=== PATIENT | male | born 1950 | race Caucasian/White ===

== ENCOUNTER 2016-10-05 09:37 | Inpatient (IN) | payer OTHER ==
[~2016-10-05] VITALS: Ht 177.8 cm; Wt 94.3 kg
--- NOTE | 2016-10-05 17:23 | EKG ---
[facility] [address] [facility] [place] [address] Signed Normal sinus rhythm Normal ECG No previous ECGs available Confirmed by KEYONNA MANNING MD ([id number]) on 10/05/2016 5:23:00 PM Electronically Signed By: KEYONNA MANNING MD 10/05/16 1723 PATIENT NAME: RICHYXAVIER Electrocardiogram DATE OF : 52 PHYSICIAN: KEYONNA MANNING MD REPORT #: [id number] REPORT IS CONFIDENTIAL AND NOT TO BE RELEASED WITHOUT AUTHORIZATION
[2016-10-08] MEDS ORDERED: NICOTINE PATCH1 EA TD (20:40)
[2016-10-08] MEDS ORDERED: ASPIRIN EC81 MG PO (20:40)
[2016-10-08] MEDS ORDERED: ATORVASTATIN CA80 MG PO (20:40)
[2016-10-08] MEDS ORDERED: NORVASC10 MG PO (20:40)
== END 2016-10-09 13:00 | disposition home or self-care (01) | DRG 65 ==
LOC: ED 09:37 → MS 13:11
PROVIDERS: ADMIT Internal Medicine
DX: I63.9 Cerebral infarction, unspecified (principal); D68.51 Activated protein C resistance; G81.91 Hemiplegia, unspecified affecting right dominant side; I10 Essential (primary) hypertension; E78.5 Hyperlipidemia, unspecified; I65.23 Occlusion and stenosis of bilateral carotid arteries; R47.81 Slurred speech; R26.81 Unsteadiness on feet; F17.200 Nicotine dependence, unspecified, uncomplicated; Z79.82 Long term (current) use of aspirin
CPT/HCPCS: 36415; 70450; 71010; 80048; 80053; 80061; 81001; 81241; 83036; 85025; 85610; 85730; 92507; 92523; 93005; 93010; 93306; 93880; 97112; 97116; 97161; 97165; 97530; 99285; 99406; J7030

== ENCOUNTER 2017-06-17 08:16 | Day surgery (SDC) | payer MEDICARE, MEDICAID, OTHER ==
[~2017-06-17] VITALS: Ht 177.8 cm; Wt 93.4 kg
[~2017-06-17 08:16] MED LIST: ASPIRIN EC81 MG PO; ATORVASTATIN CA80 MG PO; CITALOPRAM HBR20 MG PO; FLUOXETINE HCL10 M1 PO; LEVOTHYROXINE50 MCG PO; LISINOPRIL20 MG PO; METFORMIN HCL500 MG PO; NICOTINE PATCH1 EA TD; NORVASC10 MG PO
[2017-06-17] MEDS ORDERED: METOPROLOL SUCC50 MG (08:42)
--- NOTE | 2017-06-17 09:49 | NUR ---
06/17/17 0949 Kirstin Yepez 0918-PATIENT ARRIVED TO PACU ON 4L NC WEANED TO 2L NC O2 SAT 96% ABDOMEN ROUND AND SOFT. PASSING FLATUS. PATIENT DROWSY AWAKENS TO VERBAL STIMULI RR EVEN.
--- NOTE | 2017-06-17 17:10 | OR ---
[facility] [address] [place], [place] [address] Signed DATE OF OPERATION: 06/17/2017 SURGEON: Bj Moreno MD PREOPERATIVE DIAGNOSIS: Screening. POSTOPERATIVE DIAGNOSES: 1. 10 mm polyp at 85 cm (tattoo). 2. Mid right colon polyps x3, 4 mm and 10 mm. 3. 5 mm polyp at 42 cm. 4. 8 to 10 mm polyp at 25 cm. 5. 4 mm polyp at 12 cm. 6. 3 mm polyp at 4 cm. 7. Internal hemorrhoids. 8. Minimal sigmoid diverticulosis. PROCEDURE PERFORMED: Colonoscopy with hot biopsy, snare polypectomy, and injection tattoo at 85 cm. ESTIMATED BLOOD LOSS: None. INDICATIONS: Jamaal is a 66-year-old gentleman, who was asked to see me for his initial screening colonoscopy. His has been through colonoscopy, so they are familiar with the process. Jamaal tells me he has no lower GI complaints. He is a little forgetful after his stroke. He said there is no family history of colon cancer or polyps. In the office, I gave Jamaal a pamphlet on colonoscopy and we looked at that together along with the risks including, but not limited to gas bloating, crampy abdominal pain, bleeding, perforation, requiring surgery, and missed diagnosis. We also discussed the need for IV conscious sedation. He had expressed understanding and wished to proceed. PROCEDURE NOTE: I did ask Jamaal to take his citalopram 20 mg p.o. with a sip of water in the morning. Fortunately, he did do that for us. Once in the endoscopy suite, we placed him in the left lateral decubitus position. He was given a total of 5 mg of Versed and 150 mcg of fentanyl to cover the case. A digital rectal exam was performed and this was unremarkable. His prostate does show some induration. The adult colonoscope was then, introduced and advanced all around into the cecum under direct visualization of camera Electronically Signed By: BJ MORENO MD 06/17/17 1710 PATIENT NAME: JAMAAL LOCKHART OPERATIVE REPORT DATE OF : 52 REPORT #: [id number] PHYSICIAN: BJ MORENO MD PCP: ANUJ MAN MD REPORT IS CONFIDENTIAL AND NOT TO BE RELEASED WITHOUT AUTHORIZATION [facility] [address] [place], [place] [address] Signed without difficulty. His prep was overall good. There were a couple of areas of liquid stool, I could not quite suction out completely. We had withdrawn the scope and removed the above mentioned polyps. We had used a snare at 85 and 25 cm. At 85 cm, we did inject a tattoo around that polyp, so we can find it in the future, it looks like it is somewhere near the splenic flexure or just distal to the splenic flexure. The other polyps came out with the hot biopsy forceps. We did see a few diverticula in the sigmoid colon and then we retroflexed the scope in the rectum. He had just a tiny polypoid lesion above the anal canal, which we removed with a hot biopsy forceps. He also has some internal hemorrhoids. After this, the gas was suctioned out, colonoscope removed. Jamaal tolerated the procedure quite well. RECOMMENDATIONS: We will see Jamaal back in the office in 7 to 14 days to review his results. He might consider a short followup interval say anywhere from 1 to 3 years. Bj Moreno MD ALB/MODL /[id number] cc: MD Anuj Brooks MD Copies: BJ MORENO MD, MALCOLM MD ~ Electronically Signed By: BJ MORENO MD 06/17/17 1710 PATIENT NAME: JAMAAL LOCKHART OPERATIVE REPORT DATE OF : 52 REPORT #: [id number] PHYSICIAN: BJ MORENO MD PCP: ANUJ MAN MD REPORT IS CONFIDENTIAL AND NOT TO BE RELEASED WITHOUT AUTHORIZATION
== END 2017-06-17 10:40 | disposition home or self-care (01) ==
LOC: DS 08:16 → OPS 08:16 → DS 09:45 → OPS 09:45
PROVIDERS: Colon & Rectal Surgery
PROC: 0DBE8ZZ Excision of Large Intestine, Via Natural or Artificial Opening Endoscopic (ICD-10-PCS; 2017-06-17)
PROC: 3E0H8GC Introduction of Other Therapeutic Substance into Lower GI, Via Natural or Artificial Opening Endoscopic (ICD-10-PCS; 2017-06-17)
PROC: 0DBF8ZZ Excision of Right Large Intestine, Via Natural or Artificial Opening Endoscopic (ICD-10-PCS; principal; 2017-06-17 09:00)
DX: Z12.11 Encounter for screening for malignant neoplasm of colon (principal); D12.6 Benign neoplasm of colon, unspecified; K63.5 Polyp of colon; K57.30 Diverticulosis of large intestine without perforation or abscess without bleeding; K64.8 Other hemorrhoids; I10 Essential (primary) hypertension; E03.9 Hypothyroidism, unspecified; E11.9 Type 2 diabetes mellitus without complications; F32.9 Major depressive disorder, single episode, unspecified; E66.9 Obesity, unspecified; G47.33 Obstructive sleep apnea (adult) (pediatric); E78.2 Mixed hyperlipidemia; F17.210 Nicotine dependence, cigarettes, uncomplicated; Z79.82 Long term (current) use of aspirin; Z79.84 Long term (current) use of oral hypoglycemic drugs; Z79.899 Other long term (current) drug therapy
CPT/HCPCS: 88305; 99153; G0500; J2250; J3010; J7120